=== PATIENT | male | born 1980 | race Two or more races ===

== ENCOUNTER 2018-12-30 21:45 | Emergency (ER) | payer SELFPAY ==
[~2018-12-30] VITALS: Ht 170.2 cm; Wt 90.7 kg
[2018-12-30 21:53] VITALS: BP 136/78
--- NOTE | 2018-12-30 22:00 | NUR ---
ED Nurse Note: PT brought in with [facility] with posible ETOH. alcohol odor noted in pt breath. pt is arousabel to sternal rub. pt is asleep. fall precautions are taken. all vital signs are stable. pt presents with redness on forehead. pt is alert and oriented times 1 due to pt being drowsy.
--- NOTE | 2018-12-30 22:03 | Emergency Room Report ---
History of Present Illness General Chief Complaint: Alcohol Intoxication Source: EMS Present Illness HPI Patient is approximately 40-year-old male brought in by EMS after increased altered mental status. Patient was noted to have increased confusion he was found lying in the street. Patient was noted to have some abrasions to his face. History is limited by patient's mental status. Patient was noted to have been able to open his eyes spontaneously. Allergies: Coded Allergies: UNABLE TO ASSESS (Unverified , 12/30/18) Patient History Past Medical History: see triage record Reviewed Nursing Documentation: PMH: Agreed; PSxH: Agreed Nursing Documentation-PMH Past Medical History Deferred: Pt Cognitively Impaired Review of Systems All Other Systems: negative except mentioned in HPI Physical Exam Vital Signs Date Time Temp Pulse Resp B/P (MAP) Pulse Ox O2 Delivery O2 Flow Rate FiO2 12/30/18 21:41 97.9 57 21 136/78 97 Room Air 12/30/18 21:53 98 Sp02 EP Interpretation: reviewed, normal General Appearance: normal inspection, well appearing, no apparent distress, alert, Chronically Ill Head: other - facial swelling and abrasion ENT: normal ENT inspection, hearing grossly normal, normal voice Neck: normal inspection, full range of motion, supple, no bony tend Respiratory: normal inspection, lungs clear, normal breath sounds, no respiratory distress, no retraction, no wheezing Cardiovascular #1: regular rate, rhythm, no edema Gastrointestinal: normal inspection, normal bowel sounds, non tender, soft, no guarding, no hernia Genitourinary: no CVA tenderness Musculoskeletal: normal inspection, back normal, normal range of motion Neurologic: other - eyes open, moves extremities, slow to respond Psychiatric: normal inspection, judgement/insight normal, mood/affect normal Skin: normal inspection, normal color, no rash Medical Decision Making Diagnostic Impression: Primary Impression: Acute alcoholic intoxication ER Course Patient is a 39-year-old male presented after increased altered mental status. Differential diagnosis include was not limited to alcohol intoxication, intracranial hemorrhage, electrolyte abnormality among others. Because of complexity of patient's case laboratory testing and imaging studies were ordered. CT imaging of the head read by radiology showed no evidence of acute intracranial hemorrhage or ventriculomegaly. Laboratory testing was notable for markedly elevated blood alcohol level. Patient was noted to have some gradual improvement in mental status.Patient was noted to be markedly intoxicated. Patient was noted to have continued intoxication will be discharged on more sober. Labs Test 12/30/18 22:42 White Blood Count 5.4 K/UL (4.8-10.8) Red Blood Count 4.58 M/UL (4.70-6.10) Hemoglobin 12.8 G/DL (14.2-18.0) Hematocrit 40.0 % (42.0-52.0) Mean Corpuscular Volume 87 FL (80-99) Mean Corpuscular Hemoglobin 27.9 PG (27.0-31.0) Mean Corpuscular Hemoglobin Concent 31.9 G/DL (32.0-36.0) Red Cell Distribution Width 14.3 % (11.6-14.8) Platelet Count 163 K/UL (150-450) Mean Platelet Volume 8.4 FL (6.5-10.1) Neutrophils (%) (Auto) % (45.0-75.0) Lymphocytes (%) (Auto) % (20.0-45.0) Monocytes (%) (Auto) % (1.0-10.0) Eosinophils (%) (Auto) % (0.0-3.0) Basophils (%) (Auto) % (0.0-2.0) Differential Total Cells Counted 100 Neutrophils % (Manual) 27 % (45-75) Lymphocytes % (Manual) 61 % (20-45) Monocytes % (Manual) 10 % (1-10) Eosinophils % (Manual) 1 % (0-3) Basophils % (Manual) 1 % (0-2) Band Neutrophils 0 % (0-8) Platelet Estimate Adequate Platelet Morphology Normal Red Blood Cell Morphology Normal Prothrombin Time 11.4 SEC (9.30-11.50) Prothromb Time International Ratio 1.1 (0.9-1.1) Activated Partial Thromboplast Time 24 SEC (23-33) Sodium Level 146 MMOL/L (136-145) Potassium Level 3.8 MMOL/L (3.5-5.1) Chloride Level 106 MMOL/L (98-107) Carbon Dioxide Level 25 MMOL/L (21-32) Anion Gap 15 mmol/L (5-15) Blood Urea Nitrogen 8 mg/dL (7-18) Creatinine 0.7 MG/DL (0.55-1.30) Estimat Glomerular Filtration Rate > 60 mL/min (>60) Glucose Level 123 MG/DL (74-106) Calcium Level 8.9 MG/DL (8.5-10.1) Total Bilirubin 0.3 MG/DL (0.2-1.0) Aspartate Amino Transf (AST/SGOT) 107 U/L (15-37) Alanine Aminotransferase (ALT/SGPT) 49 U/L (12-78) Alkaline Phosphatase 116 U/L (46-116) Total Protein 8.6 G/DL (6.4-8.2) Albumin 3.5 G/DL (3.4-5.0) Globulin 5.1 g/dL Albumin/Globulin Ratio 0.7 (1.0-2.7) Serum Alcohol 531 mg/dL Last Vital Signs Date Time Temp Pulse Resp B/P (MAP) Pulse Ox O2 Delivery O2 Flow Rate FiO2 12/30/18 21:53 57 21 Room Air 98 12/30/18 21:53 97.9 136/78 97 Status: improved Disposition: HOME, SELF-CARE Condition: Stable Ezio Crawford MD Dec 30, 2018 22:03
[2018-12-30 23:05] LABS: HEMOGLOBIN 12.8 G/DL (14.2-18.0); MEAN CORPUSCULAR VOLUME 87 FL (80-99); PLATELET COUNT 163 K/UL (150-450); RED BLOOD COUNT 4.58 M/UL (4.70-6.10); RED CELL DISTRIBUTION WIDTH 14.3 % (11.6-14.8); WHITE BLOOD COUNT 5.4 K/UL (4.8-10.8)
[2018-12-30 23:15] LABS: ANION GAP 15 mmol/L (5-15); BLOOD UREA NITROGEN 8 mg/dL (7-18); CALCIUM 8.9 MG/DL (8.5-10.1); CARBON DIOXIDE 25 MMOL/L (21-32); CHLORIDE 106 MMOL/L (98-107); CREATININE 0.7 MG/DL (0.55-1.30); POTASSIUM 3.8 MMOL/L (3.5-5.1); SODIUM 146 MMOL/L (136-145)
[2018-12-30 23:21] LABS: ALANINE AMINOTRANSFERASE 49 U/L (12-78); ALBUMIN 3.5 G/DL (3.4-5.0); ALBUMIN/GLOBULIN RATIO 0.7 (1.0-2.7); ALKALINE PHOSPHATASE 116 U/L (46-116); ASPARTATE AMINO TRANSFERASE 107 U/L (15-37); BILIRUBIN,TOTAL 0.3 MG/DL (0.2-1.0)
[2018-12-30 23:35] LABS: INR 1.1 (0.9-1.1)
[2018-12-31] VITALS: BP 129/73
--- NOTE | 2018-12-31 01:45 | NUR ---
ED Nurse Note: PT is able to speak and state name and date of .
[2018-12-31 01:54] VITALS: BP 135/76
--- NOTE | 2018-12-31 02:00 | NUR ---
ED Nurse Note: pt now more alert, pt able to state his name and birthday, pt states that he lives at home by himself but nobody available to pick pt up. pt resp even and unlabored on RA, airway intact, ERMD notified.
[2018-12-31 03:36] VITALS: BP 125/86
[2018-12-31 05:07] VITALS: BP 136/81
--- NOTE | 2018-12-31 07:15 | NUR ---
ED Nurse Note: Pt left/ walked out ER without reassessment, DC notes and [facility] DC log. pt has no ID or IV. no belonings left behind.
--- NOTE | 2018-12-31 10:50 | Diagnostic Imaging Report ---
Indication: Altered mental status Technique: Continuous helical CT scanning of the head was performed without intravenous contrast material. Axial and coronal 5 mm sections were generated. Radiation dose was minimized using automated exposure control Dose: Total Dose Length Product - DLP 1488.[address] Dose Index - CTDIvol(s) 70.38 mGy. Comparison: none Findings: There is a small right frontal supraorbital scalp soft tissue contusion. The ventricular system is normal in size and configuration. There is no shift of midline structures. No abnormal extra-axial fluid collections are noted. There is no evidence of intracerebral bleeding. No other abnormal high or low density areas are noted within the brain. Normal viveros-white differentiation. Intact calvarium. The mastoids are clear. Visualized orbits and sinuses are unremarkable. Impression: Negative for acute intracranial bleed or mass effect Evidence of right frontal supraorbital scalp soft tissue injury This agrees with the preliminary interpretation provided overnight by [facility]eradiology service, with minor variation. The CT scanner at [facility] is accredited by the [employer] and the scans are performed using protocols designed to limit radiation exposure to as low as reasonably achievable to attain images of sufficient resolution adequate for diagnostic evaluation.
== END 2018-12-31 07:39 | disposition home or self-care (01) ==
LOC: EDBD 21:45 → EMR 21:59
DX: F10.129 Alcohol abuse with intoxication, unspecified (principal); Y90.8 Blood alcohol level of 240 mg/100 ml or more
CPT/HCPCS: 36415; 70450; 80053; 85007; 85025; 85610; 85730; 99284; G0480; 80329